=== PATIENT | male | born 1970 | race Caucasian/White ===

== ENCOUNTER 2018-02-27 20:23 | Inpatient (IN) | payer MEDICAID ==
[~2018-02-27] VITALS: Ht 177.8 cm; Wt 114.2 kg
[2018-02-27] MEDS ORDERED: SODIUM CHLORIDE 0.9% 1,000 ML IVB ONE (21:00)
[2018-02-27] MEDS ORDERED: PROPOFOL 0 ML IV ONE (21:04)
[2018-02-27] MEDS ORDERED: PROPOFOL 100 ML IV ONE ×2 (21:08→23:36)
[2018-02-27 21:19] LABS: Hematocrit 42.9 % (41.0-53.0); Hemoglobin 14.3 g/dL (13.5-17.5); Mean Corpuscular Hemoglobin 32.1 pg (28.0-32.0); Mean Corpuscular Hgb Conc. 33.3 g/dL (32.0-36.0); Mean Corpuscular Volume 96.4 fL (80.0-100.0); Platelet Count (auto) 195 10^3/uL (140-450); Red Blood Cells 4.45 10^6/uL (4.5-5.90); Red Cell Distribution Width 14.8 % (11.8-14.3); White Blood Cell 10.6 10^3/uL (4.4-10.8)
[2018-02-27] MEDS ORDERED: fentaNYL CITRATE 100 MCG/2 ML VL ONE (21:25)
[2018-02-27] MEDS ORDERED: ANGIOMAX 250 MG VIAL IV ONE (21:25)
[2018-02-27] MEDS ORDERED: SODIUM CHL 0.9% 50 ML ONE (21:26)
[2018-02-27] MEDS ORDERED: MIDAZOLAM HCL 1MG/1ML-2 ML VIAL ONE (21:26)
[2018-02-27] MEDS ORDERED: IODIXANOL 320MG/ML 100ML BTL IV ONE (21:27)
[2018-02-27] MEDS ORDERED: LIDOCAINE 2%HCL (LOCAL ANESTH.) INJ 20ML MDV ONE (21:27)
[2018-02-27 21:28] LABS: Albumin 3.2 g/dL (3.4-5.0); BUN/Creatinine Ratio 5.6; Calcium 7.8 mg/dL (8.5-10.1); Magnesium 3.2 mg/dL (1.6-2.6); Potassium 3.5 mmol/L (3.5-5.1)
[2018-02-27 21:29] LABS: Band Neutrophils % (manual) 0; Basophils % (manual) 0 (0.0-2.0); Blast Cells 0; Metamyelocytes % 0; Myelocytes % 0; Promyelocytes % 0; Reactive Lymphocytes 0
[2018-02-27 21:31] LABS: INR 0.95 (0.9-1.15); Partial Thromboplastin Time 28.2 sec (23.78-33.04); Prothrombin Time 10.2 sec (9.27-12.13)
[2018-02-27 21:33] LABS: Bilirubin, Total 0.2 mg/dL (0.2-1.0); Total Protein 6.2 g/dL (6.4-8.2)
[2018-02-27] MEDS ORDERED: LORazepam 2MG/ML-1ML VIAL ONE (21:42)
[2018-02-27 21:43] LABS: Eosinophils % (manual) 2 (0-7); Lymphocytes % (manual) 45 (10.0-50.0); Monocytes % (manual) 5 (0-12)
[2018-02-27] MEDS ORDERED: VERAPAMIL 2.5MG/ML INJ 2ML VIAL IV ONE (21:45)
[2018-02-27] MEDS ORDERED: MIDAZOLAM HCL 5 MG/ML-1ML VIAL ONE (21:47)
[2018-02-27] MEDS ORDERED: NOREPINEPHRINE 8 MG/250ML KIT 250 ML IV ONE (21:56)
[2018-02-27 22:02] LABS: Urine Bacteria NONE SEEN /hpf (None Seen); Urine Blood TRACE /uL (Negative); Urine Mucus FEW (None Seen); Urine Specific Gravity 1.019 (1.001-1.035); Urine Sperm PRESENT /hpf (None Seen); Urine WBC 2 /hpf (0 - 3)
[2018-02-27] MEDS ORDERED: ASPirin 325 MG TAB ONE (22:41)
[2018-02-27] MEDS ORDERED: TICAGRELOR 90 MG TAB ONE (22:43)
[2018-02-27 22:55] VITALS: BP 126/54
[2018-02-27] MEDS ORDERED: MORPHINE SULFATE 8mg/ml INJ SDV IV PRN (23:00)
[2018-02-27] MEDS ORDERED: ATORVASTATIN 20 MG TAB PO ONE (23:00)
[2018-02-27] MEDS ORDERED: ONDANSETRON HCL 4 MG/2 ML VIAL IV PRN (23:00)
[2018-02-27] MEDS: fentaNYL Drip 2500mCg/250mlNS 250 ML IV SCH (23:00)
[2018-02-27] MEDS ORDERED: fentaNYL Drip 2500mCg/250mlNS 250 ML IV ONE (23:02)
[2018-02-27] MEDS ORDERED: HEPARIN DRIP/D5W 100UNITS/ML 250 ML IV SCH (23:16)
[2018-02-27] MEDS ORDERED: HEPARIN DRIP/D5W 100UNITS/ML 250 ML IV ONE (23:29)
[2018-02-27 23:30] VITALS: BP 122/69
[2018-02-27] MEDS ORDERED: cefTRIAXone 1GM/10ml IVPUSH 10 ML IV ONE (23:30)
[2018-02-27 23:45] VITALS: BP 143/81
[2018-02-28] VITALS (91 sets, daily range): BP systolic 85–145; BP diastolic 40–80
[2018-02-28 00:11] LABS: BUN/Creatinine Ratio 5.3; Calcium 8.1 mg/dL (8.5-10.1); Potassium 3.4 mmol/L (3.5-5.1)
[2018-02-28] MEDS ORDERED: LORazepam 2MG/ML-1ML VIAL IV ONE (00:15)
[2018-02-28] MEDS ORDERED: MIDAZOLAM HCL 5 MG/ML-1ML VIAL IV ONE (00:15)
[2018-02-28] MEDS ORDERED: POTASSIUM CHL 20MEQ/100ML 200 ML IV ONE (00:33)
[2018-02-28] MEDS ORDERED: LIDOCAINE 50MG/5ML INJ 5ML SYRINGE IV ONE (01:00)
[2018-02-28] MEDS: LIDOCAINE 4MG/ML IV SOLN 500 ML IV SCH ×2 (01:30→17:20)
[2018-02-28] MEDS ORDERED: ATO40T PO (01:32)
[2018-02-28] MEDS ORDERED: DOPamine 1600MCG/ML D5W 250 ML IV SCH (03:46)
[2018-02-28] MEDS: NOREPINEPHRINE 8 MG/250ML KIT 250 ML IV SCH ×4 (04:21→18:24)
[2018-02-28] MEDS: D5W/SOD CHL 0.45%/KCL 20MEQ 1,000 ML IV SCH ×2 (05:10→18:23)
[2018-02-28] MEDS ORDERED: CLINDAMYCIN 600MG IV 50 ML IV SCH (06:00)
[2018-02-28 07:54] LABS: Basophils # (auto) 0.1 uL; Basophils % (auto) 0.4 % (0.0-2.0); Eosinophils # (auto) 0 uL; Eosinophils % (auto) 0.1 % (0.0-7.0); Hemoglobin 14.9 g/dL (13.5-17.5); Lymphocytes # (auto) 1.3 uL; Lymphocytes % (auto) 10.8 % (10.0-50.0); Mean Corpuscular Hemoglobin 34.1 pg (28.0-32.0); Mean Corpuscular Hgb Conc. 35.6 g/dL (32.0-36.0); Mean Corpuscular Volume 95.9 fL (80.0-100.0); Monocytes # (auto) 0.9 uL; Monocytes % (auto) 7.3 % (0.0-12.0); Neutrophils # (auto) 9.9 uL; Neutrophils % (auto) 81.4 % (37.0-80.0); Nucleated Red Blood Cells % 0.3 %; Platelet Count (auto) 304 10^3/uL (140-450); Red Blood Cells 4.37 10^6/uL (4.5-5.90); Red Cell Distribution Width 14.9 % (11.8-14.3); White Blood Cell 12.2 10^3/uL (4.4-10.8)
[2018-02-28] MEDS: HEPARIN DRIP/D5W 100UNITS/ML 250 ML IV SCH (08:30)
[2018-02-28] MEDS ORDERED: cefTRIAXone 1GM/10ml IVPUSH 10 ML IV SCH (09:00)
[2018-02-28 09:09] LABS: Albumin 3.3 g/dL (3.4-5.0); BUN/Creatinine Ratio 8.6; Calcium 7.5 mg/dL (8.5-10.1); Potassium 4.4 mmol/L (3.5-5.1)
[2018-02-28] MEDS: DOPamine 3200MCG/ML 250 ML IV SCH (09:21)
[2018-02-28] MEDS: PROPOFOL 100 ML IV SCH ×4 (09:23→18:21)
[2018-02-28 09:30] LABS: Bilirubin, Total 0.5 mg/dL (0.2-1.0); Total Protein 6.7 g/dL (6.4-8.2)
[2018-02-28] MEDS: VASOPRESSIN 50 UNITS in D5W 5% 247.5 ML IV SCH (09:45)
[2018-02-28] MEDS: PANTOPRAZOLE 40 MG/10 ML VIAL IV SCH (09:55)
[2018-02-28] MEDS: TICAGRELOR 90 MG TAB GT SCH ×2 (09:56→22:00)
[2018-02-28] MEDS: ASPirin 81 mg TAB PO SCH ×2 (09:56→15:12)
[2018-02-28 10:26] LABS: INR 1.19 (0.9-1.15); Partial Thromboplastin Time 40.5 sec (23.78-33.04); Prothrombin Time 12.6 sec (9.27-12.13)
[2018-02-28 10:56] LABS: Alcohol, Urine < 3.0 mg/dL (0-5); Amphetamine Screen, Urine NEGATIVE (NEGATIVE); Barbiturate Scree,Urine NEGATIVE (NEGATIVE); Benzodiazephine Screen, Urine POSITIVE (NEGATIVE); Cannabinoid Screen, Urine NEGATIVE (NEGATIVE); Cocaine Screen, Urine NEGATIVE (NEGATIVE); Opiate Scree,Urine NEGATIVE (NEGATIVE); Phencyclidine Screen, Urine NEGATIVE (NEGATIVE)
[2018-02-28] MEDS ORDERED: VANCOMYCIN PER PHARMACY 0 MG IV SCH (12:30)
[2018-02-28] MEDS: LEVOFLOXACIN 500MG 100 ML IV SCH (14:15)
[2018-02-28] MEDS: VANCOMYCIN 750 MG in D5W 5% 250 ML IV SCH (15:14)
[2018-02-28] MEDS ORDERED: PIPERACILLIN-TAZOB 3.375GM 100 ML IV SCH (18:00)
[2018-02-28] MEDS: fentaNYL Drip 2500mCg/250mlNS 250 ML IV SCH (18:20)
[2018-02-28] MEDS: ATORVASTATIN 20 MG TAB PO SCH (22:00)
[2018-03-01] VITALS (69 sets, daily range): BP systolic 94–126; BP diastolic 40–67
[2018-03-01] MEDS: VANCOMYCIN 750 MG in D5W 5% 250 ML IV SCH (03:00)
[2018-03-01 04:07] LABS: Basophils # (auto) 0 uL; Basophils % (auto) 0.2 % (0.0-2.0); Eosinophils # (auto) 0.1 uL; Eosinophils % (auto) 0.4 % (0.0-7.0); Hematocrit 45.4 % (41.0-53.0); Hemoglobin 15.1 g/dL (13.5-17.5); Lymphocytes # (auto) 1.2 uL; Lymphocytes % (auto) 8.9 % (10.0-50.0); Mean Corpuscular Hemoglobin 32.3 pg (28.0-32.0); Mean Corpuscular Hgb Conc. 33.3 g/dL (32.0-36.0); Mean Corpuscular Volume 97.2 fL (80.0-100.0); Monocytes # (auto) 1.3 uL; Monocytes % (auto) 9.3 % (0.0-12.0); Neutrophils # (auto) 11.3 uL; Neutrophils % (auto) 81.2 % (37.0-80.0); Nucleated Red Blood Cells % 0.1 %; Platelet Count (auto) 230 10^3/uL (140-450); Red Blood Cells 4.67 10^6/uL (4.5-5.90); Red Cell Distribution Width 14.8 % (11.8-14.3); White Blood Cell 13.9 10^3/uL (4.4-10.8)
[2018-03-01 04:27] LABS: BUN/Creatinine Ratio 9.5; Bilirubin, Total 0.8 mg/dL (0.2-1.0); Calcium 7.6 mg/dL (8.5-10.1); Potassium 4.7 mmol/L (3.5-5.1); Total Protein 6.7 g/dL (6.4-8.2)
[2018-03-01 05:03] LABS: INR 0.93 (0.9-1.15); Partial Thromboplastin Time 27.4 sec (23.78-33.04)
[2018-03-01] MEDS: ALBUTEROL SULF 2.5 MG/0.5ML(0.5%) NEB SOLN NEB PRN (05:55)
[2018-03-01] MEDS: IPRATROPIUM BROM 0.5 MG/2.5ML INH SOL NEB PRN (05:55)
[2018-03-01] MEDS: D5W/SOD CHL 0.45%/KCL 20MEQ 1,000 ML IV SCH ×2 (08:00→13:00)
[2018-03-01] MEDS: HEPARIN DRIP/D5W 100UNITS/ML 250 ML IV SCH (09:00)
[2018-03-01] MEDS: VASOPRESSIN 50 UNITS in D5W 5% 247.5 ML IV SCH (09:45)
[2018-03-01] MEDS: LEVOFLOXACIN 500MG 100 ML IV SCH (10:23)
[2018-03-01] MEDS: PANTOPRAZOLE 40 MG/10 ML VIAL IV SCH (10:23)
[2018-03-01] MEDS: ASPirin 81 mg TAB PO SCH (10:24)
[2018-03-01] MEDS: TICAGRELOR 90 MG TAB GT SCH ×2 (11:01→22:00)
[2018-03-01] MEDS: PROPOFOL 100 ML IV SCH ×3 (11:27→18:01)
[2018-03-01] MEDS: DOPamine 3200MCG/ML 250 ML IV SCH (11:45)
[2018-03-01] MEDS ORDERED: DEXTROSE (50%) 50ML SYRG IV PRN (14:15)
[2018-03-01] MEDS ORDERED: ACETAMINOPHEN 650 MG RECT SUPP PR PRN (14:15)
[2018-03-01] MEDS ORDERED: fentaNYL Drip 2500mCg/250mlNS 250 ML IV ONE (14:16)
[2018-03-01] MEDS: fentaNYL Drip 2500mCg/250mlNS 250 ML IV SCH (14:41)
[2018-03-01] MEDS: VANCOMYCIN 1,250 MG in D5W 5% 250 ML IV SCH (15:50)
[2018-03-01] MEDS: NOREPINEPHRINE 8 MG/250ML KIT 250 ML IV SCH (17:00)
[2018-03-01] MEDS: InsuLIN REG 1unit/0.01ml Soln (100units/ml) SC SCH (18:00)
[2018-03-01] MEDS: ACCU-CHEK COMFORT CURVE STRIP VI SCH (18:01)
[2018-03-01] MEDS ORDERED: SUCCINYLCHOLINE CHLORIDE 20 MG/ML 10ML VIAL IV ONE (19:03)
[2018-03-01] MEDS: ATORVASTATIN 20 MG TAB PO SCH (22:00)
[2018-03-02] VITALS (50 sets, daily range): BP systolic 98–155; BP diastolic 44–96
[2018-03-02] MEDS: ACCU-CHEK COMFORT CURVE STRIP VI SCH ×4 (00:45→18:00)
[2018-03-02] MEDS: InsuLIN REG 1unit/0.01ml Soln (100units/ml) SC SCH ×4 (00:45→18:00)
[2018-03-02] MEDS: VANCOMYCIN 1,250 MG in D5W 5% 250 ML IV SCH ×2 (03:29→16:30)
[2018-03-02 03:34] LABS: Basophils # (auto) 0 uL; Basophils % (auto) 0.3 % (0.0-2.0); Eosinophils # (auto) 0.1 uL; Hematocrit 41.3 % (41.0-53.0); Hemoglobin 13.7 g/dL (13.5-17.5); Lymphocytes # (auto) 0.9 uL; Lymphocytes % (auto) 8.6 % (10.0-50.0); Mean Corpuscular Hemoglobin 31.5 pg (28.0-32.0); Mean Corpuscular Hgb Conc. 33.3 g/dL (32.0-36.0); Mean Corpuscular Volume 94.6 fL (80.0-100.0); Monocytes # (auto) 0.5 uL; Monocytes % (auto) 5.1 % (0.0-12.0); Neutrophils # (auto) 8.8 uL; Platelet Count (auto) 164 10^3/uL (140-450); Red Blood Cells 4.36 10^6/uL (4.5-5.90); Red Cell Distribution Width 14.9 % (11.8-14.3); White Blood Cell 10.4 10^3/uL (4.4-10.8)
[2018-03-02 03:48] LABS: INR 0.88 (0.9-1.15); Partial Thromboplastin Time 33.6 sec (23.78-33.04); Prothrombin Time 9.5 sec (9.27-12.13)
[2018-03-02 04:00] LABS: Potassium 4.4 mmol/L (3.5-5.1)
[2018-03-02 04:06] LABS: Albumin 2.6 g/dL (3.4-5.0); BUN/Creatinine Ratio 5.5; Calcium 8.1 mg/dL (8.5-10.1)
[2018-03-02 04:09] LABS: Total Protein 6.1 g/dL (6.4-8.2)
[2018-03-02] MEDS: PROPOFOL 100 ML IV SCH ×3 (08:00→14:30)
[2018-03-02] MEDS: HEPARIN DRIP/D5W 100UNITS/ML 250 ML IV SCH (08:30)
[2018-03-02] MEDS: VASOPRESSIN 50 UNITS in D5W 5% 247.5 ML IV SCH (09:45)
[2018-03-02 10:01] LABS: Urine Bacteria FEW /hpf (None Seen); Urine Blood 1+ /uL (Negative); Urine Mucus FEW (None Seen); Urine Specific Gravity 1.014 (1.001-1.035); Urine WBC 6 /hpf (0 - 3)
[2018-03-02] MEDS: LEVOFLOXACIN 500MG 100 ML IV SCH (10:45)
[2018-03-02] MEDS: PANTOPRAZOLE 40 MG/10 ML VIAL IV SCH (11:20)
[2018-03-02] MEDS: TICAGRELOR 90 MG TAB GT SCH ×2 (11:20→21:56)
[2018-03-02] MEDS ORDERED: MIDAZOLAM HCL 1MG/1ML-2 ML VIAL IV PRN (12:00)
[2018-03-02] MEDS: D5W/SOD CHL 0.45%/KCL 20MEQ 1,000 ML IV SCH (13:00)
[2018-03-02] MEDS ORDERED: LIDOCAINE 1% (LOCAL ANESTH.) PF 5ml SDV ID ONE (15:15)
[2018-03-02] MEDS: DOPamine 3200MCG/ML 250 ML IV SCH (15:30)
[2018-03-02] MEDS: NOREPINEPHRINE 8 MG/250ML KIT 250 ML IV SCH (15:30)
[2018-03-02] MEDS: LIDOCAINE 4MG/ML IV SOLN 500 ML IV SCH (18:00)
[2018-03-02] MEDS: fentaNYL Drip 2500mCg/250mlNS 250 ML IV SCH (18:00)
[2018-03-02] MEDS: ATORVASTATIN 20 MG TAB PO SCH (21:56)
[2018-03-02] MEDS: SODIUM CHLOR 0.9% PF (SALINE LOCK) 10ML VIAL/SYR IV SCH (21:56)
[2018-03-03] VITALS (56 sets, daily range): BP systolic 97–141; BP diastolic 43–70
[2018-03-03] MEDS: ACCU-CHEK COMFORT CURVE STRIP VI SCH ×5 (00:18→23:47)
[2018-03-03] MEDS: NOREPINEPHRINE 8 MG/250ML KIT 250 ML IV SCH (00:40)
[2018-03-03] MEDS: LIDOCAINE 4MG/ML IV SOLN 500 ML IV SCH (01:00)
[2018-03-03] MEDS: VANCOMYCIN 1,250 MG in D5W 5% 250 ML IV SCH (02:40)
[2018-03-03] MEDS: D5W/SOD CHL 0.45%/KCL 20MEQ 1,000 ML IV SCH ×2 (03:15→17:26)
[2018-03-03] MEDS: fentaNYL Drip 2500mCg/250mlNS 250 ML IV SCH ×3 (05:00→23:50)
[2018-03-03] MEDS: PROPOFOL 100 ML IV SCH ×5 (05:06→20:58)
[2018-03-03 05:25] LABS: Basophils # (auto) 0.1 uL; Basophils % (auto) 0.8 % (0.0-2.0); Eosinophils # (auto) 0.1 uL; Eosinophils % (auto) 2.1 % (0.0-7.0); Hematocrit 43.4 % (41.0-53.0); Hemoglobin 14.2 g/dL (13.5-17.5); Lymphocytes # (auto) 0.8 uL; Lymphocytes % (auto) 11.7 % (10.0-50.0); Mean Corpuscular Hemoglobin 31.8 pg (28.0-32.0); Mean Corpuscular Hgb Conc. 32.8 g/dL (32.0-36.0); Mean Corpuscular Volume 96.9 fL (80.0-100.0); Monocytes # (auto) 0.6 uL; Neutrophils # (auto) 5.6 uL; Neutrophils % (auto) 77.4 % (37.0-80.0); Nucleated Red Blood Cells % 0.1 %; Platelet Count (auto) 154 10^3/uL (140-450); Red Blood Cells 4.48 10^6/uL (4.5-5.90); Red Cell Distribution Width 15.8 % (11.8-14.3); White Blood Cell 7.2 10^3/uL (4.4-10.8)
[2018-03-03 05:40] LABS: INR 0.91 (0.9-1.15); Partial Thromboplastin Time 32.7 sec (23.78-33.04); Prothrombin Time 9.8 sec (9.27-12.13)
[2018-03-03 05:43] LABS: Albumin 2.3 g/dL (3.4-5.0); BUN/Creatinine Ratio 3.7; Potassium 3.9 mmol/L (3.5-5.1)
[2018-03-03 05:46] LABS: Bilirubin, Total 0.7 mg/dL (0.2-1.0); Total Protein 6.2 g/dL (6.4-8.2)
[2018-03-03] MEDS: HEPARIN DRIP/D5W 100UNITS/ML 250 ML IV SCH (06:00)
[2018-03-03] MEDS: InsuLIN REG 1unit/0.01ml Soln (100units/ml) SC SCH ×5 (06:00→23:47)
[2018-03-03] MEDS: ASPirin 81 mg TAB PO SCH (09:28)
[2018-03-03] MEDS: TICAGRELOR 90 MG TAB GT SCH ×2 (09:28→21:46)
[2018-03-03] MEDS: SODIUM CHLOR 0.9% PF (SALINE LOCK) 10ML VIAL/SYR IV SCH ×2 (09:28→21:47)
[2018-03-03] MEDS: PANTOPRAZOLE 40 MG/10 ML VIAL IV SCH (09:28)
[2018-03-03] MEDS: DOPamine 3200MCG/ML 250 ML IV SCH (16:00)
[2018-03-03] MEDS: ATORVASTATIN 20 MG TAB PO SCH (21:47)
[2018-03-04] VITALS (58 sets, daily range): BP systolic 90–140; BP diastolic 41–92
[2018-03-04] MEDS: PROPOFOL 100 ML IV SCH ×6 (00:40→21:33)
[2018-03-04 03:46] LABS: Basophils # (auto) 0 uL; Basophils % (auto) 0.4 % (0.0-2.0); Eosinophils # (auto) 0.2 uL; Eosinophils % (auto) 2.2 % (0.0-7.0); Hematocrit 40.2 % (41.0-53.0); Hemoglobin 13.4 g/dL (13.5-17.5); Lymphocytes # (auto) 0.7 uL; Lymphocytes % (auto) 9.4 % (10.0-50.0); Mean Corpuscular Hemoglobin 31.7 pg (28.0-32.0); Mean Corpuscular Hgb Conc. 33.3 g/dL (32.0-36.0); Mean Corpuscular Volume 95.4 fL (80.0-100.0); Monocytes # (auto) 0.8 uL; Monocytes % (auto) 11.2 % (0.0-12.0); Neutrophils # (auto) 5.4 uL; Neutrophils % (auto) 76.8 % (37.0-80.0); Platelet Count (auto) 163 10^3/uL (140-450); Red Blood Cells 4.22 10^6/uL (4.5-5.90); Red Cell Distribution Width 15.4 % (11.8-14.3)
[2018-03-04 04:00] LABS: INR 0.87 (0.9-1.15); Partial Thromboplastin Time 33.1 sec (23.78-33.04); Prothrombin Time 9.4 sec (9.27-12.13)
[2018-03-04 04:06] LABS: Potassium 4.1 mmol/L (3.5-5.1)
[2018-03-04 04:08] LABS: BUN/Creatinine Ratio 5.4
[2018-03-04] MEDS: NOREPINEPHRINE 8 MG/250ML KIT 250 ML IV SCH (05:03)
[2018-03-04] MEDS: ACCU-CHEK COMFORT CURVE STRIP VI SCH ×3 (05:45→18:05)
[2018-03-04] MEDS: InsuLIN REG 1unit/0.01ml Soln (100units/ml) SC SCH ×3 (05:45→18:00)
[2018-03-04] MEDS: D5W/SOD CHL 0.45%/KCL 20MEQ 1,000 ML IV SCH ×2 (06:52→17:28)
[2018-03-04] MEDS: LEVOFLOXACIN 750MG 150 ML IV SCH (09:47)
[2018-03-04] MEDS: TICAGRELOR 90 MG TAB GT SCH ×2 (09:47→22:52)
[2018-03-04] MEDS: PANTOPRAZOLE 40 MG/10 ML VIAL IV SCH (09:47)
[2018-03-04] MEDS: ASPirin 81 mg TAB PO SCH (09:47)
[2018-03-04] MEDS: SODIUM CHLOR 0.9% PF (SALINE LOCK) 10ML VIAL/SYR IV SCH ×2 (10:00→22:51)
[2018-03-04] MEDS ORDERED: IODIXANOL 320MG/ML 100ML BTL IV ONE ×2 (12:42→15:21)
[2018-03-04] MEDS ORDERED: LIDOCAINE 2%HCL (LOCAL ANESTH.) INJ 20ML MDV ONE (12:43)
[2018-03-04] MEDS ORDERED: SODIUM CHL 0.9% 50 ML ONE ×2 (13:47→15:06)
[2018-03-04] MEDS ORDERED: ANGIOMAX 250 MG VIAL IV ONE ×2 (13:47→15:06)
[2018-03-04] MEDS ORDERED: ADENOSINE 6 MG/2 ML INJ IV ONE (14:41)
[2018-03-04] MEDS ORDERED: EPTIFIBATIDE INJ (2MG/ML) 10ML VIAL IV ONE (14:41)
[2018-03-04] MEDS ORDERED: DIGOXIN (250MCG/ML) 2 ML AMPULE IV ONE (17:15)
[2018-03-04] MEDS ORDERED: SODIUM CHLORIDE 0.9% 1,000 ML IV ONE ×3 (17:15→23:45)
[2018-03-04] MEDS: fentaNYL Drip 2500mCg/250mlNS 250 ML IV SCH (17:28)
[2018-03-04] MEDS: HEPARIN DRIP/D5W 100UNITS/ML 250 ML IV SCH (17:34)
[2018-03-04] MEDS: DOPamine 3200MCG/ML 250 ML IV SCH (17:46)
[2018-03-04 18:20] LABS: Basophils # (auto) 0 uL; Basophils % (auto) 0.2 % (0.0-2.0); Eosinophils # (auto) 0.1 uL; Eosinophils % (auto) 1.7 % (0.0-7.0); Hematocrit 33.9 % (41.0-53.0); Hemoglobin 11.9 g/dL (13.5-17.5); Lymphocytes # (auto) 0.4 uL; Lymphocytes % (auto) 8.4 % (10.0-50.0); Mean Corpuscular Hemoglobin 33.4 pg (28.0-32.0); Mean Corpuscular Volume 95.2 fL (80.0-100.0); Monocytes # (auto) 0.4 uL; Monocytes % (auto) 7.4 % (0.0-12.0); Neutrophils # (auto) 4.2 uL; Neutrophils % (auto) 82.3 % (37.0-80.0); Nucleated Red Blood Cells % 0.1 %; Platelet Count (auto) 143 10^3/uL (140-450); Red Blood Cells 3.56 10^6/uL (4.5-5.90); Red Cell Distribution Width 15.7 % (11.8-14.3); White Blood Cell 5.1 10^3/uL (4.4-10.8)
[2018-03-04 19:18] LABS: INR 1.07 (0.9-1.15); Prothrombin Time 11.4 sec (9.27-12.13)
[2018-03-04 19:24] LABS: Partial Thromboplastin Time 106.6 sec (23.78-33.04)
[2018-03-04 19:32] LABS: Anion Gap 7 (5-15); Carbon Dioxide 23 mmol/L (21-32); Chloride 112 mmol/L (98-107); Sodium 142 mmol/L (136-145)
[2018-03-04 19:33] LABS: Alanine Aminotransferase 40 U/L (16-61); Alkaline Phosphatase 74 U/L (45-117); Aspartate Aminotransferase 43 U/L (15-37); BUN/Creatinine Ratio 6.3; Bilirubin, Total 0.5 mg/dL (0.2-1.0); Blood Urea Nitrogen 7 mg/dL (7-18); Calcium 7.2 mg/dL (8.5-10.1); GFR African American 91 mL/min; GFR Non-African American 75 mL/min; Glucose 145 mg/dL (74-106); Total Protein 5.8 g/dL (6.4-8.2)
[2018-03-04] MEDS: ACETAMINOPHEN 650 mg PER 20 mL UD PO PRN (21:58)
[2018-03-04] MEDS: ATORVASTATIN 20 MG TAB PO SCH (21:58)
[2018-03-04 22:11] LABS: INR 0.95 (0.9-1.15); Partial Thromboplastin Time 45.3 sec (23.78-33.04); Prothrombin Time 10.2 sec (9.27-12.13)
[2018-03-04] MEDS ORDERED: D5W/SOD CHL 0.45% 1,000 ML IV SCH (23:45)
[2018-03-05] VITALS (66 sets, daily range): BP systolic 84–128; BP diastolic 34–70
[2018-03-05] MEDS: ACCU-CHEK COMFORT CURVE STRIP VI SCH ×4 (00:07→17:17)
[2018-03-05] MEDS: PROPOFOL 100 ML IV SCH ×6 (00:50→21:00)
[2018-03-05] MEDS: D5W/SOD CHL 0.45% 1,000 ML IV SCH ×4 (01:00→18:32)
[2018-03-05] MEDS: NOREPINEPHRINE 8 MG/250ML KIT 250 ML IV SCH ×2 (01:35→18:33)
[2018-03-05 03:38] LABS: Basophils # (auto) 0 uL; Basophils % (auto) 0.5 % (0.0-2.0); Eosinophils # (auto) 0.2 uL; Eosinophils % (auto) 2.3 % (0.0-7.0); Hematocrit 37.4 % (41.0-53.0); Hemoglobin 12.3 g/dL (13.5-17.5); Lymphocytes # (auto) 1.1 uL; Mean Corpuscular Hemoglobin 31.8 pg (28.0-32.0); Mean Corpuscular Hgb Conc. 32.9 g/dL (32.0-36.0); Mean Corpuscular Volume 96.6 fL (80.0-100.0); Monocytes # (auto) 0.9 uL; Monocytes % (auto) 11.6 % (0.0-12.0); Neutrophils # (auto) 5.3 uL; Neutrophils % (auto) 70.6 % (37.0-80.0); Nucleated Red Blood Cells % 0.2 %; Platelet Count (auto) 144 10^3/uL (140-450); Red Blood Cells 3.88 10^6/uL (4.5-5.90); Red Cell Distribution Width 15.7 % (11.8-14.3); White Blood Cell 7.6 10^3/uL (4.4-10.8)
[2018-03-05 04:25] LABS: BUN/Creatinine Ratio 8.1; Calcium 7.3 mg/dL (8.5-10.1); Magnesium 1.9 mg/dL (1.6-2.6); Potassium 4.5 mmol/L (3.5-5.1)
[2018-03-05 04:28] LABS: Bilirubin, Total 0.5 mg/dL (0.2-1.0)
[2018-03-05] MEDS: ACETAMINOPHEN 650 mg PER 20 mL UD PO PRN (05:26)
[2018-03-05] MEDS: InsuLIN REG 1unit/0.01ml Soln (100units/ml) SC SCH ×4 (06:00→17:17)
[2018-03-05 07:14] LABS: INR 0.88 (0.9-1.15); Partial Thromboplastin Time 35.8 sec (23.78-33.04); Prothrombin Time 9.5 sec (9.27-12.13)
[2018-03-05] MEDS ORDERED: DIGOXIN (250MCG/ML) 2 ML AMPULE IV SCH (10:00)
[2018-03-05] MEDS: TICAGRELOR 90 MG TAB GT SCH ×2 (10:09→22:00)
[2018-03-05] MEDS: ASPirin 81 mg TAB PO SCH (10:09)
[2018-03-05] MEDS: PANTOPRAZOLE 40 MG/10 ML VIAL IV SCH (10:09)
[2018-03-05] MEDS: LEVOFLOXACIN 750MG 150 ML IV SCH (10:09)
[2018-03-05] MEDS: SODIUM CHLOR 0.9% PF (SALINE LOCK) 10ML VIAL/SYR IV SCH ×2 (10:13→22:00)
[2018-03-05] MEDS ORDERED: Fibersource Hn 1 Liter GT SCH (13:00)
[2018-03-05] MEDS: METOCLOPRAMIDE HCL 5MG/ml INJ 2ml VIAL IV SCH ×2 (14:49→22:00)
[2018-03-05] MEDS: IPRATROPIUM BROM 0.5 MG/2.5ML INH SOL NEB PRN (15:18)
[2018-03-05] MEDS: ALBUTEROL SULF 2.5 MG/0.5ML(0.5%) NEB SOLN NEB PRN (15:18)
[2018-03-05] MEDS: fentaNYL Drip 2500mCg/250mlNS 250 ML IV SCH (15:35)
[2018-03-05] MEDS: ATORVASTATIN 20 MG TAB PO SCH (22:00)
[2018-03-06] VITALS (81 sets, daily range): BP systolic 98–153; BP diastolic 45–91
[2018-03-06] MEDS: ACCU-CHEK COMFORT CURVE STRIP VI SCH ×4 (00:19→17:48)
[2018-03-06] MEDS: fentaNYL Drip 2500mCg/250mlNS 250 ML IV SCH (03:20)
[2018-03-06] MEDS: PROPOFOL 100 ML IV SCH ×4 (03:20→21:10)
[2018-03-06 03:54] LABS: Basophils # (auto) 0.1 uL; Basophils % (auto) 0.7 % (0.0-2.0); Eosinophils # (auto) 0.2 uL; Eosinophils % (auto) 2.2 % (0.0-7.0); Hematocrit 35.9 % (41.0-53.0); Lymphocytes # (auto) 0.8 uL; Lymphocytes % (auto) 11.4 % (10.0-50.0); Mean Corpuscular Hemoglobin 31.8 pg (28.0-32.0); Mean Corpuscular Hgb Conc. 33.3 g/dL (32.0-36.0); Mean Corpuscular Volume 95.4 fL (80.0-100.0); Monocytes # (auto) 0.8 uL; Monocytes % (auto) 12.2 % (0.0-12.0); Neutrophils % (auto) 73.5 % (37.0-80.0); Nucleated Red Blood Cells % 0.1 %; Platelet Count (auto) 176 10^3/uL (140-450); Red Blood Cells 3.76 10^6/uL (4.5-5.90); Red Cell Distribution Width 15.3 % (11.8-14.3); White Blood Cell 6.9 10^3/uL (4.4-10.8)
[2018-03-06 04:10] LABS: INR 0.89 (0.9-1.15); Partial Thromboplastin Time 33.3 sec (23.78-33.04); Prothrombin Time 9.6 sec (9.27-12.13)
[2018-03-06 04:15] LABS: Potassium 3.9 mmol/L (3.5-5.1)
[2018-03-06 04:20] LABS: BUN/Creatinine Ratio 6.4; Calcium 7.9 mg/dL (8.5-10.1)
[2018-03-06] MEDS: InsuLIN REG 1unit/0.01ml Soln (100units/ml) SC SCH ×4 (06:00→17:48)
[2018-03-06] MEDS: METOCLOPRAMIDE HCL 5MG/ml INJ 2ml VIAL IV SCH ×3 (06:01→22:00)
[2018-03-06] MEDS: DOPamine 3200MCG/ML 250 ML IV SCH ×2 (07:45→08:25)
[2018-03-06] MEDS: HEPARIN DRIP/D5W 100UNITS/ML 250 ML IV SCH ×2 (07:45→07:56)
[2018-03-06] MEDS: LEVOFLOXACIN 750MG 150 ML IV SCH (09:30)
[2018-03-06] MEDS: ASPirin 81 mg TAB PO SCH (09:31)
[2018-03-06] MEDS: PANTOPRAZOLE 40 MG/10 ML VIAL IV SCH (09:31)
[2018-03-06] MEDS: TICAGRELOR 90 MG TAB GT SCH ×2 (09:31→22:00)
[2018-03-06] MEDS: SODIUM CHLOR 0.9% PF (SALINE LOCK) 10ML VIAL/SYR IV SCH ×2 (10:00→22:00)
[2018-03-06] MEDS: ACETAMINOPHEN 650 mg PER 20 mL UD PO PRN (21:00)
[2018-03-06] MEDS: ATORVASTATIN 20 MG TAB PO SCH (22:00)
[2018-03-07] VITALS (67 sets, daily range): BP systolic 71–143; BP diastolic 43–93
[2018-03-07] MEDS: fentaNYL Drip 2500mCg/250mlNS 250 ML IV SCH (03:00)
[2018-03-07] MEDS: NOREPINEPHRINE 8 MG/250ML KIT 250 ML IV SCH (03:46)
[2018-03-07] MEDS: PROPOFOL 100 ML IV SCH (04:00)
[2018-03-07] MEDS: HEPARIN DRIP/D5W 100UNITS/ML 250 ML IV SCH ×2 (04:30→08:30)
[2018-03-07 05:10] LABS: Basophils # (auto) 0 uL; Basophils % (auto) 0.6 % (0.0-2.0); Eosinophils # (auto) 0.2 uL; Eosinophils % (auto) 2.8 % (0.0-7.0); Hematocrit 30.6 % (41.0-53.0); Hemoglobin 10.6 g/dL (13.5-17.5); Lymphocytes # (auto) 0.7 uL; Lymphocytes % (auto) 12.1 % (10.0-50.0); Mean Corpuscular Hemoglobin 32.5 pg (28.0-32.0); Mean Corpuscular Hgb Conc. 34.7 g/dL (32.0-36.0); Mean Corpuscular Volume 93.8 fL (80.0-100.0); Monocytes # (auto) 0.5 uL; Monocytes % (auto) 8.6 % (0.0-12.0); Neutrophils # (auto) 4.4 uL; Neutrophils % (auto) 75.9 % (37.0-80.0); Nucleated Red Blood Cells % 0.1 %; Platelet Count (auto) 219 10^3/uL (140-450); Red Blood Cells 3.26 10^6/uL (4.5-5.90); Red Cell Distribution Width 15.3 % (11.8-14.3); White Blood Cell 5.8 10^3/uL (4.4-10.8)
[2018-03-07 05:37] LABS: Albumin 2.3 g/dL (3.4-5.0); Bilirubin, Total 0.3 mg/dL (0.2-1.0); Calcium 8.2 mg/dL (8.5-10.1); Potassium 3.5 mmol/L (3.5-5.1); Total Protein 6.1 g/dL (6.4-8.2)
[2018-03-07] MEDS: D5W/SOD CHL 0.45% 1,000 ML IV SCH (05:45)
[2018-03-07] MEDS: METOCLOPRAMIDE HCL 5MG/ml INJ 2ml VIAL IV SCH ×3 (06:10→22:09)
[2018-03-07] MEDS: ACCU-CHEK COMFORT CURVE STRIP VI SCH ×3 (06:15→11:47)
[2018-03-07] MEDS: InsuLIN REG 1unit/0.01ml Soln (100units/ml) SC SCH ×3 (06:15→11:48)
[2018-03-07 07:22] LABS: INR 0.89 (0.9-1.15); Partial Thromboplastin Time 33.4 sec (23.78-33.04); Prothrombin Time 9.6 sec (9.27-12.13)
[2018-03-07] MEDS ORDERED: FUROSEMIDE 40 MG/4 ML VIAL IV ONE ×2 (08:45→18:00)
[2018-03-07] MEDS: DOPamine 3200MCG/ML 250 ML IV SCH (09:00)
[2018-03-07] MEDS: TICAGRELOR 90 MG TAB GT SCH ×2 (09:40→22:09)
[2018-03-07] MEDS: LEVOFLOXACIN 750MG 150 ML IV SCH (09:40)
[2018-03-07] MEDS: ASPirin 81 mg TAB PO SCH (09:40)
[2018-03-07] MEDS: PANTOPRAZOLE 40 MG/10 ML VIAL IV SCH (09:40)
[2018-03-07] MEDS: SODIUM CHLOR 0.9% PF (SALINE LOCK) 10ML VIAL/SYR IV SCH ×2 (09:41→22:09)
[2018-03-07] MEDS: ACETAMINOPHEN 650 mg PER 20 mL UD PO PRN (20:54)
[2018-03-07] MEDS: ATORVASTATIN 20 MG TAB PO SCH (22:00)
[2018-03-07] MEDS: ENOXAPARIN SOD 40 MG/0.4 ML SYRINGE SC SCH (22:10)
[2018-03-07] MEDS: METOPROLOL TARTRATE 25 MG TAB PO SCH (22:10)
[2018-03-07] MEDS: ALBUTEROL SULF 2.5 MG/0.5ML(0.5%) NEB SOLN NEB PRN (23:48)
[2018-03-07] MEDS: IPRATROPIUM BROM 0.5 MG/2.5ML INH SOL NEB PRN (23:48)
[2018-03-08] VITALS (38 sets, daily range): BP systolic 94–125; BP diastolic 43–78
[2018-03-08 03:30] LABS: Basophils # (auto) 0 uL; Basophils % (auto) 0.5 % (0.0-2.0); Eosinophils # (auto) 0.1 uL; Eosinophils % (auto) 1.1 % (0.0-7.0); Hematocrit 30.5 % (41.0-53.0); Hemoglobin 10.3 g/dL (13.5-17.5); Lymphocytes # (auto) 0.8 uL; Mean Corpuscular Hemoglobin 31.4 pg (28.0-32.0); Mean Corpuscular Hgb Conc. 33.6 g/dL (32.0-36.0); Mean Corpuscular Volume 93.2 fL (80.0-100.0); Monocytes # (auto) 0.4 uL; Monocytes % (auto) 3.8 % (0.0-12.0); Neutrophils # (auto) 8.4 uL; Neutrophils % (auto) 86.6 % (37.0-80.0); Nucleated Red Blood Cells % 0.1 %; Platelet Count (auto) 304 10^3/uL (140-450); Red Blood Cells 3.28 10^6/uL (4.5-5.90); Red Cell Distribution Width 14.9 % (11.8-14.3); White Blood Cell 9.7 10^3/uL (4.4-10.8)
[2018-03-08 03:42] LABS: INR 0.94 (0.9-1.15); Partial Thromboplastin Time 33.3 sec (23.78-33.04); Prothrombin Time 10.1 sec (9.27-12.13)
[2018-03-08] MEDS: NOREPINEPHRINE 8 MG/250ML KIT 250 ML IV SCH (03:46)
[2018-03-08] MEDS: METOCLOPRAMIDE HCL 5MG/ml INJ 2ml VIAL IV SCH (06:00)
[2018-03-08] MEDS: DOPamine 3200MCG/ML 250 ML IV SCH (09:00)
[2018-03-08] MEDS: PANTOPRAZOLE 40 MG/10 ML VIAL IV SCH (09:35)
[2018-03-08] MEDS: LEVOFLOXACIN 750MG 150 ML IV SCH (09:35)
[2018-03-08] MEDS: TICAGRELOR 90 MG TAB GT SCH ×2 (09:35→21:07)
[2018-03-08] MEDS: SODIUM CHLOR 0.9% PF (SALINE LOCK) 10ML VIAL/SYR IV SCH ×2 (09:35→21:07)
[2018-03-08] MEDS: METOPROLOL TARTRATE 25 MG TAB PO SCH ×2 (09:36→21:20)
[2018-03-08] MEDS: ASPirin 81 mg TAB PO SCH (09:36)
[2018-03-08] MEDS ORDERED: POTASSIUM CHL 20 Meq TABLET PO ONE (10:00)
[2018-03-08] MEDS: FLUCONAZOLE 200MG/100ML 100 ML IV SCH (10:31)
[2018-03-08] MEDS ORDERED: POTASSIUM CHL 10% (20 MEQ/15ML) 15ml ORAL SOLN GT ONE (15:15)
[2018-03-08] MEDS: ACETAMINOPHEN 650 mg PER 20 mL UD PO PRN (16:30)
[2018-03-08] MEDS: ALBUTEROL SULF 2.5 MG/0.5ML(0.5%) NEB SOLN NEB PRN (20:14)
[2018-03-08] MEDS: IPRATROPIUM BROM 0.5 MG/2.5ML INH SOL NEB PRN (20:14)
[2018-03-08] MEDS: ATORVASTATIN 20 MG TAB PO SCH (21:07)
[2018-03-08] MEDS: ENOXAPARIN SOD 40 MG/0.4 ML SYRINGE SC SCH (21:08)
[2018-03-09 00:06] VITALS: BP 117/61
[2018-03-09 04:00] VITALS: BP 132/95
[2018-03-09 05:23] LABS: Basophils # (auto) 0.1 uL; Basophils % (auto) 0.7 % (0.0-2.0); Eosinophils # (auto) 0.1 uL; Eosinophils % (auto) 0.7 % (0.0-7.0); Hematocrit 32.6 % (41.0-53.0); Hemoglobin 11.2 g/dL (13.5-17.5); Lymphocytes # (auto) 0.9 uL; Lymphocytes % (auto) 8.4 % (10.0-50.0); Mean Corpuscular Hemoglobin 31.9 pg (28.0-32.0); Mean Corpuscular Hgb Conc. 34.4 g/dL (32.0-36.0); Mean Corpuscular Volume 92.7 fL (80.0-100.0); Monocytes # (auto) 0.4 uL; Monocytes % (auto) 3.7 % (0.0-12.0); Neutrophils # (auto) 9.5 uL; Neutrophils % (auto) 86.5 % (37.0-80.0); Platelet Count (auto) 421 10^3/uL (140-450); Red Blood Cells 3.51 10^6/uL (4.5-5.90); Red Cell Distribution Width 14.5 % (11.8-14.3)
[2018-03-09 05:31] LABS: INR 0.91 (0.9-1.15); Partial Thromboplastin Time 32.2 sec (23.78-33.04); Prothrombin Time 9.8 sec (9.27-12.13)
[2018-03-09 05:44] LABS: Albumin 2.5 g/dL (3.4-5.0); BUN/Creatinine Ratio 16.4; Calcium 8.3 mg/dL (8.5-10.1); Magnesium 2.7 mg/dL (1.6-2.6); Potassium 3.8 mmol/L (3.5-5.1)
[2018-03-09 05:47] LABS: Bilirubin, Total 0.8 mg/dL (0.2-1.0); Total Protein 6.7 g/dL (6.4-8.2)
[2018-03-09] MEDS ORDERED: LORazepam 2MG/ML-1ML VIAL IV ONE (09:45)
[2018-03-09] MEDS ORDERED: LORazepam 0.5 MG TAB PO PRN (10:00)
[2018-03-09] MEDS: LEVOFLOXACIN 750MG 150 ML IV SCH (10:15)
[2018-03-09] MEDS: POTASSIUM CHL 20 Meq TABLET PO SCH (11:59)
[2018-03-09] MEDS: ASPirin 81 mg TAB PO SCH (11:59)
[2018-03-09 12:00] VITALS: BP 126/48
[2018-03-09] MEDS: PANTOPRAZOLE 40 MG/10 ML VIAL IV SCH (12:00)
[2018-03-09] MEDS: TICAGRELOR 90 MG TAB GT SCH ×2 (12:00→21:38)
[2018-03-09] MEDS: METOPROLOL TARTRATE 25 MG TAB PO SCH ×2 (12:01→21:37)
[2018-03-09] MEDS: FUROSEMIDE 20 MG/2 ML VIAL IV SCH (12:01)
[2018-03-09] MEDS: SODIUM CHLOR 0.9% PF (SALINE LOCK) 10ML VIAL/SYR IV SCH ×2 (12:02→21:38)
[2018-03-09] MEDS: FLUCONAZOLE 200MG/100ML 100 ML IV SCH (12:45)
[2018-03-09 16:00] VITALS: BP 110/56
[2018-03-09 20:30] VITALS: BP 138/83
[2018-03-09] MEDS: ENOXAPARIN SOD 40 MG/0.4 ML SYRINGE SC SCH (21:36)
[2018-03-09] MEDS: ATORVASTATIN 20 MG TAB PO SCH (21:37)
[2018-03-10] VITALS: BP 144/55
[2018-03-10 04:00] VITALS: BP 126/74
[2018-03-10 05:24] LABS: Basophils # (auto) 0 uL; Eosinophils # (auto) 0.2 uL; Lymphocytes # (auto) 1.3 uL; Monocytes # (auto) 0.5 uL; Neutrophils # (auto) 7.1 uL
[2018-03-10 05:27] LABS: Basophils % (auto) 0.3 % (0.0-2.0); Eosinophils % (auto) 2.1 % (0.0-7.0); Hematocrit 32.6 % (41.0-53.0); Hemoglobin 11.1 g/dL (13.5-17.5); Lymphocytes % (auto) 13.9 % (10.0-50.0); Mean Corpuscular Hemoglobin 31.3 pg (28.0-32.0); Mean Corpuscular Hgb Conc. 34.1 g/dL (32.0-36.0); Mean Corpuscular Volume 91.9 fL (80.0-100.0); Monocytes % (auto) 5.6 % (0.0-12.0); Neutrophils % (auto) 78.1 % (37.0-80.0); Nucleated Red Blood Cells % 0.1 %; Platelet Count (auto) 470 10^3/uL (140-450); Red Blood Cells 3.54 10^6/uL (4.5-5.90); Red Cell Distribution Width 14.5 % (11.8-14.3)
[2018-03-10 05:34] LABS: INR 0.93 (0.9-1.15); Partial Thromboplastin Time 31.2 sec (23.78-33.04)
[2018-03-10 05:38] LABS: BUN/Creatinine Ratio 21.9; Calcium 8.3 mg/dL (8.5-10.1); Potassium 3.7 mmol/L (3.5-5.1)
[2018-03-10] MEDS ORDERED: PANTOPRAZOLE 40 MG TAB PO SCH (10:00)
[2018-03-10] MEDS ORDERED: POTA10TA34 PO (10:26)
[2018-03-10] MEDS ORDERED: FURO20TA PO (10:26)
[2018-03-10] MEDS ORDERED: LEVO500T21 PO (10:26)
[2018-03-10] MEDS ORDERED: ATO40T PO (10:26)
[2018-03-10] MEDS ORDERED: FLUC200T35 PO (10:26)
[2018-03-10] MEDS ORDERED: TICA90TA PO (10:26)
[2018-03-10] MEDS ORDERED: MET25T PO (10:26)
[2018-03-10] MEDS ORDERED: ASPI81CH43 PO (10:26)
[2018-03-10] MEDS: TICAGRELOR 90 MG TAB GT SCH (11:00)
[2018-03-10] MEDS: FLUCONAZOLE 200MG/100ML 100 ML IV SCH (11:00)
[2018-03-10] MEDS: FUROSEMIDE 20 MG/2 ML VIAL IV SCH (11:30)
[2018-03-10] MEDS: POTASSIUM CHL 20 Meq TABLET PO SCH (11:30)
[2018-03-10] MEDS: METOPROLOL TARTRATE 25 MG TAB PO SCH (11:30)
[2018-03-10] MEDS: LEVOFLOXACIN 750MG 150 ML IV SCH (11:30)
[2018-03-10] MEDS: SODIUM CHLOR 0.9% PF (SALINE LOCK) 10ML VIAL/SYR IV SCH (11:30)
[2018-03-10] MEDS: ASPirin 81 mg TAB PO SCH (11:30)
[2018-03-10 12:38] VITALS: BP 132/70
== END 2018-03-10 13:30 | disposition home or self-care (01) | DRG 710 ==
LOC: ER 20:23 → ICU WEST 20:24 → DOU IN ICU 03-08 18:13 → TELE-EAST 03-10 08:52
PROVIDERS: ADMIT Specialist; ATTEND Internal Medicine
PROC: B2161ZZ Fluoroscopy of Right and Left Heart using Low Osmolar Contrast (ICD-10-PCS; principal; 2018-02-27)
PROC: 027034Z Dilation of Coronary Artery, One Artery with Drug-eluting Intraluminal Device, Percutaneous Approach (ICD-10-PCS; 2018-02-27)
PROC: 5A02210 Assistance with Cardiac Output using Balloon Pump, Continuous (ICD-10-PCS; 2018-02-27)
PROC: B2111ZZ Fluoroscopy of Multiple Coronary Arteries using Low Osmolar Contrast (ICD-10-PCS; 2018-02-27)
PROC: 5A1955Z Respiratory Ventilation, Greater than 96 Consecutive Hours (ICD-10-PCS; 2018-02-27)
PROC: 0BH17EZ Insertion of Endotracheal Airway into Trachea, Via Natural or Artificial Opening (ICD-10-PCS; 2018-02-27)
PROC: 02C03ZZ Extirpation of Matter from Coronary Artery, One Artery, Percutaneous Approach (ICD-10-PCS; 2018-02-27)
PROC: 027037Z Dilation of Coronary Artery, One Artery with Four or More Drug-eluting Intraluminal Devices, Percutaneous Approach (ICD-10-PCS; 2018-03-04)
PROC: 02PAX3Z Removal of Infusion Device from Heart, External Approach (ICD-10-PCS; 2018-03-06)
DX: A41.9 Sepsis, unspecified organism (principal); I21.29 ST elevation (STEMI) myocardial infarction involving other sites; J96.00 Acute respiratory failure, unspecified whether with hypoxia or hypercapnia; N17.0 Acute kidney failure with tubular necrosis; J69.0 Pneumonitis due to inhalation of food and vomit; G93.1 Anoxic brain damage, not elsewhere classified; G93.41 Metabolic encephalopathy; E78.5 Hyperlipidemia, unspecified; E66.9 Obesity, unspecified
CPT/HCPCS: 31500; 36415; 36569; 36600; 70450; 71045; 74018; 80048; 80053; 80061; 80162; 80202; 80307; 81001; 82805; 82962; 83036; 83605; 83615; 83735; 83880; 84132; 84443; 84484; 85007; 85025; 85027; 85610; 85730; 86850; 86900; 86901; 87040; 87070; 87081; 87086; 87205; 92610; 92950; 92960; 93005; 93306; 94002; 94003; 94640; 97116; 99152; 99153; 99291; C1874; C9113; J0153; J0330; J1265; J1450; J1815; J1956; J2250; J2704; J3480; J3490; J7060; Q9967

== ENCOUNTER 2018-05-24 02:35 | Inpatient (IN) | payer MEDICAID ==
[~2018-05-24] VITALS: Ht 177.8 cm; Wt 92.1 kg
[~2018-05-24 02:35] MED LIST: ASPI81CH43 PO; ATO40T PO; FLUC200T35 PO; FURO20TA PO; LEVO500T21 PO; MET25T PO; POTA1TAB61 PO; TICA90TA PO
[2018-05-24] MEDS ORDERED: ONDANSETRON HCL 4 MG/2 ML VIAL IV ONE (04:30)
[2018-05-24] MEDS: MORPHINE SULFATE 4 MG/ML SYR/VIAL IV ONE ×2 (04:44→05:09)
[2018-05-24 04:45] LABS: Basophils # (auto) 0.1 uL; Basophils % (auto) 0.7 % (0.0-2.0); Eosinophils # (auto) 0.1 uL; Eosinophils % (auto) 0.5 % (0.0-7.0); Hematocrit 45.4 % (41.0-53.0); Hemoglobin 15.8 g/dL (13.5-17.5); Lymphocytes # (auto) 0.8 uL; Lymphocytes % (auto) 7.7 % (10.0-50.0); Mean Corpuscular Hemoglobin 31.7 pg (28.0-32.0); Mean Corpuscular Hgb Conc. 34.8 g/dL (32.0-36.0); Monocytes # (auto) 0.5 uL; Monocytes % (auto) 4.9 % (0.0-12.0); Neutrophils # (auto) 8.9 uL; Neutrophils % (auto) 86.2 % (37.0-80.0); Platelet Count (auto) 258 10^3/uL (140-450); Red Blood Cells 4.99 10^6/uL (4.5-5.90); White Blood Cell 10.3 10^3/uL (4.4-10.8)
[2018-05-24 05:02] LABS: INR 0.88 (0.9-1.15); Partial Thromboplastin Time 30.1 sec (23.78-33.04); Prothrombin Time 9.5 sec (9.27-12.13)
[2018-05-24 05:10] LABS: Alcohol, Urine < 3.0 mg/dL (0-5); Amphetamine Screen, Urine NEGATIVE (NEGATIVE); Barbiturate Scree,Urine NEGATIVE (NEGATIVE); Benzodiazephine Screen, Urine NEGATIVE (NEGATIVE); Cannabinoid Screen, Urine NEGATIVE (NEGATIVE); Cocaine Screen, Urine NEGATIVE (NEGATIVE); Opiate Scree,Urine NEGATIVE (NEGATIVE); Phencyclidine Screen, Urine NEGATIVE (NEGATIVE)
[2018-05-24 05:16] LABS: Albumin 4.1 g/dL (3.4-5.0); BUN/Creatinine Ratio 8.5; Bilirubin, Total 0.4 mg/dL (0.2-1.0); Calcium 8.6 mg/dL (8.5-10.1); Total Protein 8.1 g/dL (6.4-8.2)
[2018-05-24 05:39] LABS: Urine Bacteria NONE SEEN /hpf (None Seen); Urine Blood Negative /uL (Negative); Urine WBC <1 /hpf (0 - 3)
[2018-05-24] MEDS ORDERED: ALUM & MAG HYDROX-SIMETH LIQ(MAALOX) 30 ML PO ONE (06:00)
[2018-05-24] MEDS ORDERED: LEVOFLOXACIN 750MG 150 ML IV ONE (06:00)
[2018-05-24] MEDS ORDERED: LIDOCAINE VISCOUS 2% 15ML UD PO ONE (06:00)
[2018-05-24] MEDS ORDERED: IPRATROPIUM BROM 0.5 MG/2.5ML INH SOL HHN ONE (06:15)
[2018-05-24] MEDS ORDERED: ALBUTEROL SULF 2.5 MG/0.5ML(0.5%) NEB SOLN HHN ONE (06:15)
[2018-05-24] MEDS ORDERED: FUROSEMIDE 20 MG/2 ML VIAL IV ONE (07:30)
[2018-05-24] MEDS ORDERED: HYDROcodone-ACET 5/325MG TAB PO PRN ×2 (07:30→18:15)
[2018-05-24] MEDS ORDERED: ACETAMINOPHEN 500 MG TAB PO PRN (07:30)
[2018-05-24] MEDS ORDERED: LORazepam 0.5 MG TAB PO PRN (07:30)
[2018-05-24] MEDS ORDERED: ONDANSETRON HCL 4 MG/2 ML VIAL IV PRN (07:30)
[2018-05-24] MEDS: MORPHINE SULF INJ 2 MG/ML SYRINGE 1ML IV PRN ×2 (08:05→12:39)
[2018-05-24] MEDS: ASPirin-EC 81 mg tab PO SCH (10:09)
[2018-05-24] MEDS: AZITHROMYCIN 250 MG TAB PO SCH (10:09)
[2018-05-24] MEDS: METOPROLOL TARTRATE 25 MG TAB PO SCH ×2 (10:10→22:00)
[2018-05-24] MEDS: TICAGRELOR 90 MG TAB PO SCH ×2 (10:22→23:12)
[2018-05-24] MEDS ORDERED: traMADol HCL 50 MG TAB PO PRN (18:00)
[2018-05-24 22:00] VITALS: BP 117/68
[2018-05-24] MEDS: ATORVASTATIN 20 MG TAB PO SCH (22:37)
[2018-05-24] MEDS ORDERED: TICAGRELOR 90 MG TAB ONE (23:00)
[2018-05-25] VITALS (7 sets, daily range): BP systolic 91–135; BP diastolic 45–83
[2018-05-25] MEDS ORDERED: ADENOSINE 78 MG in GIVE UN-DILUTED 0 ML IV ONE (08:45)
[2018-05-25] MEDS: METOPROLOL TARTRATE 25 MG TAB PO SCH ×2 (10:00→22:21)
[2018-05-25] MEDS: ASPirin-EC 81 mg tab PO SCH (12:29)
[2018-05-25] MEDS: AZITHROMYCIN 250 MG TAB PO SCH (12:30)
[2018-05-25] MEDS: TICAGRELOR 90 MG TAB PO SCH ×2 (12:31→22:20)
[2018-05-25] MEDS ORDERED: FUROSEMIDE 20 MG TAB PO ONE (14:45)
[2018-05-25] MEDS: ATORVASTATIN 20 MG TAB PO SCH (22:20)
[2018-05-26 00:17] VITALS: BP 101/60
[2018-05-26 05:00] VITALS: BP 104/47
[2018-05-26 07:00] LABS: Basophils # (auto) 0 uL; Basophils % (auto) 0.5 % (0.0-2.0); Eosinophils # (auto) 0.1 uL; Eosinophils % (auto) 1.9 % (0.0-7.0); Hematocrit 38.2 % (41.0-53.0); Hemoglobin 13.2 g/dL (13.5-17.5); Lymphocytes # (auto) 1.2 uL; Lymphocytes % (auto) 19.2 % (10.0-50.0); Mean Corpuscular Hemoglobin 30.7 pg (28.0-32.0); Mean Corpuscular Hgb Conc. 34.4 g/dL (32.0-36.0); Mean Corpuscular Volume 89.2 fL (80.0-100.0); Monocytes # (auto) 0.4 uL; Monocytes % (auto) 6.7 % (0.0-12.0); Neutrophils # (auto) 4.3 uL; Neutrophils % (auto) 71.7 % (37.0-80.0); Platelet Count (auto) 222 10^3/uL (140-450); Red Blood Cells 4.28 10^6/uL (4.5-5.90); Red Cell Distribution Width 15.8 % (11.8-14.3)
[2018-05-26 07:10] LABS: BUN/Creatinine Ratio 15.6; Calcium 8.9 mg/dL (8.5-10.1); Magnesium 2.8 mg/dL (1.6-2.6); Potassium 3.8 mmol/L (3.5-5.1)
[2018-05-26 08:30] VITALS: BP 93/67
[2018-05-26] MEDS: METOPROLOL TARTRATE 25 MG TAB PO SCH ×2 (10:00→22:00)
[2018-05-26] MEDS: FUROSEMIDE 20 MG TAB PO SCH (10:00)
[2018-05-26] MEDS: AZITHROMYCIN 250 MG TAB PO SCH (10:03)
[2018-05-26] MEDS: ASPirin-EC 81 mg tab PO SCH (10:03)
[2018-05-26] MEDS: TICAGRELOR 90 MG TAB PO SCH ×2 (10:03→21:59)
[2018-05-26] MEDS ORDERED: POTASSIUM CHL 10 Meq TABLET PO ONE (11:15)
[2018-05-26 13:00] VITALS: BP 94/64
[2018-05-26 21:57] VITALS: BP 121/83
[2018-05-26] MEDS: ATORVASTATIN 20 MG TAB PO SCH (21:59)
[2018-05-26 22:00] VITALS: BP 114/62
[2018-05-27 05:43] VITALS: BP 102/55
[2018-05-27 08:22] VITALS: BP 104/70
[2018-05-27] MEDS: AZITHROMYCIN 250 MG TAB PO SCH (09:31)
[2018-05-27] MEDS: ASPirin-EC 81 mg tab PO SCH (09:31)
[2018-05-27] MEDS: TICAGRELOR 90 MG TAB PO SCH (09:31)
[2018-05-27] MEDS: METOPROLOL TARTRATE 25 MG TAB PO SCH (09:31)
[2018-05-27] MEDS: FUROSEMIDE 20 MG TAB PO SCH (09:33)
[2018-05-27] MEDS ORDERED: POTASSIUM CHL 10 Meq TABLET PO SCH (10:00)
[2018-05-27] MEDS ORDERED: MORPHINE SULF INJ 2 MG/ML SYRINGE 1ML IV PRN (11:30)
[2018-05-27 12:00] VITALS: BP 95/51
[2018-05-27] MEDS ORDERED: IODIXANOL 320MG/ML 100ML BTL IV ONE (13:28)
[2018-05-27] MEDS ORDERED: LIDOCAINE 2% (LOCAL ANESTH.) PF 5ml SDV ONE (13:28)
[2018-05-27] MEDS ORDERED: fentaNYL CITRATE 100 MCG/2 ML VL ONE (13:31)
[2018-05-27] MEDS ORDERED: MIDAZOLAM HCL 1MG/1ML-2 ML VIAL ONE (13:31)
[2018-05-27] MEDS ORDERED: ANGIOMAX 250 MG VIAL IV ONE (13:31)
[2018-05-27] MEDS ORDERED: SODIUM CHL 0.9% 0 ML ONE (13:32)
[2018-05-27 17:09] VITALS: BP 102/59
== END 2018-05-27 20:26 | disposition home or self-care (01) | DRG 191 ==
LOC: ER 02:38 → TELE 02:39 → TELE-CENTR 17:13
PROVIDERS: ADMIT Nurse Practitioner Family; ATTEND Internal Medicine
PROC: 4A023N7 Measurement of Cardiac Sampling and Pressure, Left Heart, Percutaneous Approach (ICD-10-PCS; principal; 2018-05-26)
PROC: B2151ZZ Fluoroscopy of Left Heart using Low Osmolar Contrast (ICD-10-PCS; 2018-05-26)
PROC: B2111ZZ Fluoroscopy of Multiple Coronary Arteries using Low Osmolar Contrast (ICD-10-PCS; 2018-05-26)
DX: I25.110 Atherosclerotic heart disease of native coronary artery with unstable angina pectoris (principal); I50.43 Acute on chronic combined systolic (congestive) and diastolic (congestive) heart failure; J18.9 Pneumonia, unspecified organism; I11.0 Hypertensive heart disease with heart failure; J98.11 Atelectasis; K21.9 Gastro-esophageal reflux disease without esophagitis; E66.9 Obesity, unspecified; I25.5 Ischemic cardiomyopathy; E78.5 Hyperlipidemia, unspecified; F17.210 Nicotine dependence, cigarettes, uncomplicated; I25.2 Old myocardial infarction; Z82.49 Family history of ischemic heart disease and other diseases of the circulatory system; Z83.3 Family history of diabetes mellitus; Z88.5 Allergy status to narcotic agent; Z95.1 Presence of aortocoronary bypass graft; Z88.0 Allergy status to penicillin; Z79.82 Long term (current) use of aspirin; Z79.899 Other long term (current) drug therapy; Z95.5 Presence of coronary angioplasty implant and graft; Z68.29 Body mass index [BMI] 29.0-29.9, adult
CPT/HCPCS: 36415; 71045; 78452; 80048; 80053; 80307; 81001; 83735; 83880; 84484; 85025; 85610; 85730; 86850; 86900; 86901; 87040; 93005; 93017; 94640; 96365; 96366; 96375; 96376; 99152; A6257; J0153; J1956; J2001; J2250; J2405; Q9967